=== PATIENT | female | born 1950 | race Caucasian/White ===

== ENCOUNTER 2017-05-30 09:13 | Emergency (ER) | payer MEDICARE, MEDICAID ==
[~2017-05-30] VITALS: Ht 172.7 cm; Wt 88.5 kg
[2017-05-30] MEDS ORDERED: IBUPROFEN 800800 M1 PO (09:34)
[2017-05-30] MEDS ORDERED: ZOLOFT50 MG PO (09:34)
[2017-05-30] MEDS ORDERED: FLEXERIL PO (09:35)
[2017-05-30] MEDS ORDERED: HYDROCHLOROTH12.5 M1 PO (09:35)
[2017-05-30] MEDS ORDERED: PERCOCET 7.5-31 EACH PO (09:35)
[2017-05-30] MEDS ORDERED: HYDROCODON-ACE1 EAC7 PO (12:32)
[2017-05-30] MEDS ORDERED: CYCLOBENZAPRINE5 MG PO (12:32)
[2017-05-30 12:39] VITALS: BP 139/72
== END 2017-05-30 12:40 | disposition home or self-care (01) ==
LOC: M.ERS 09:13
DX: S39.011A Strain of muscle, fascia and tendon of abdomen, initial encounter (principal); M25.551 Pain in right hip; F17.210 Nicotine dependence, cigarettes, uncomplicated; Z88.5 Allergy status to narcotic agent; Z88.0 Allergy status to penicillin; Z88.2 Allergy status to sulfonamides; Z88.8 Allergy status to other drugs, medicaments and biological substances; X58.XXXA Exposure to other specified factors, initial encounter; Y93.89 Activity, other specified; Y92.89 Other specified places as the place of occurrence of the external cause; Y99.8 Other external cause status

== ENCOUNTER → 2017-07-18 | Outpatient (CLI) | payer MEDICARE, MEDICAID ==
[~2017-07-18] MED LIST: CYCLOBENZAPRINE5 MG PO; FLEXERIL PO; HYDROCHLOROTH12.5 M1 PO; HYDROCODON-ACE1 EAC7 PO; IBUPROFEN 800800 M1 PO; OMEPRAZOLE 20 M20 M1 PO; ONDANSETRON HCL4 M2 PO; PERCOCET 7.5-31 EACH PO; ZOLOFT50 MG PO
== END ==
LOC: M.MRI 07-09 16:13 → M.RAD 07:20 → M.MRI 07:30
DX: M47.896 Other spondylosis, lumbar region (principal); M48.061 Spinal stenosis, lumbar region without neurogenic claudication; M25.451 Effusion, right hip

== ENCOUNTER → 2017-08-09 | Outpatient (CLI) | payer MEDICARE, MEDICAID | LOC: M.CT 10:38 | DX: S72.091A Other fracture of head and neck of right femur, initial encounter for closed fracture (principal); X58.XXXA Exposure to other specified factors, initial encounter; Y93.89 Activity, other specified; Y92.89 Other specified places as the place of occurrence of the external cause; Y99.8 Other external cause status ==

== ENCOUNTER 2017-12-11 04:51 | Emergency (ER) | payer MEDICARE, MEDICAID ==
[~2017-12-11] VITALS: Ht 172.7 cm; Wt 89.4 kg
[~2017-12-11 04:51] MED LIST changes: -OMEPRAZOLE 20 M20 M1 PO; -ONDANSETRON HCL4 M2 PO
[2017-12-11 06:50] VITALS: BP 140/65
== END 2017-12-11 06:51 | disposition home or self-care (01) ==
LOC: M.ERS 04:51
DX: M25.551 Pain in right hip (principal); F17.210 Nicotine dependence, cigarettes, uncomplicated; Z88.0 Allergy status to penicillin; Z88.2 Allergy status to sulfonamides; Z88.6 Allergy status to analgesic agent; Z88.5 Allergy status to narcotic agent; Z96.653 Presence of artificial knee joint, bilateral

== ENCOUNTER 2018-03-01 14:17 | Inpatient (IN) | payer MEDICARE, MEDICAID ==
[~2018-03-01] VITALS: Ht 172.7 cm; Wt 87.5 kg
[2018-03-01 14:19] VITALS: BP 154/66
[2018-03-01 14:41] LABS: ABSOLUTE BASOPHILS 0.1 thou/uL (0.0-0.2); ABSOLUTE EOSINOPHILS 0.1 thou/uL (0.0-0.7); ABSOLUTE LYMPHOCYTES 0.8 thou/uL (0.8-5.3); ABSOLUTE MONOCYTES 0.4 thou/uL (0.0-1.2); ABSOLUTE NEUTROPHILS 2.4 thou/uL (1.6-8.1); BASOPHILS 1.4 %; HEMOGLOBIN 14.5 gm/dL (12.0-15.0); LYMPHOCYTES 21.8 %; MCH 29.5 pg (26.0-34.0); MCV 89.4 fL (80.0-100.0); MONOCYTES 9.7 %; MPV 8.2 fl. (7.2-11.1); NUCLEATED RBCS 0 /100WBC; PLATELET COUNT* 246 thou/uL (150-400); POLYS 65.1 %; RBC 4.92 mil/uL (4.20-5.00); RDW-CV 14.2 % (10.5-14.5); WBC 3.7 thou/uL (4.0-11.0)
[2018-03-01 14:52] LABS: ANION GAP 7 mmol/L (7-16); BUN 16 mg/dL (7-18); CALCIUM 9.6 mg/dL (8.5-10.1); CHLORIDE 103 mmol/L (98-107); CO2 29 mmol/L (21-32); CREATININE 0.7 mg/dL (0.6-1.3); GLUCOSE 112 mg/dL (70-99); POTASSIUM 3.9 mmol/L (3.5-5.1); SODIUM 139 mmol/L (136-145)
[2018-03-01 14:59] LABS: ALBUMIN 3.5 g/dL (3.4-5.0); ALKALINE PHOSPHATASE 225 U/L (46-116); LIPASE 139 U/L (73-393); SGOT 863 U/L (15-37); SGPT 447 U/L (30-65); TOTAL BILIRUBIN 1.2 mg/dL (<0.1-1.0); TOTAL PROTEIN 7.4 g/dL (6.4-8.2); TROPONIN-I LEVEL <0.06 ng/mL (<0.06)
[2018-03-01] MEDS ORDERED: OMEPRAZOLE 20 M20 M1 PO (17:50)
[2018-03-01 20:25] VITALS: BP 136/76
[2018-03-01 22:00] VITALS: BP 136/82
[2018-03-02 03:57] LABS: MCH 29.1 pg (26.0-34.0); PLATELET COUNT* 217 thou/uL (150-400)
[2018-03-02 03:59] LABS: ABSOLUTE EOSINOPHILS 0.1 thou/uL (0.0-0.7); ABSOLUTE LYMPHOCYTES 1.2 thou/uL (0.8-5.3); ABSOLUTE MONOCYTES 0.7 thou/uL (0.0-1.2); ABSOLUTE NEUTROPHILS 6.7 thou/uL (1.6-8.1); BASOPHILS 0.3 %; EOSINOPHILS 1.4 %; HEMATOCRIT 41.5 % (37.0-47.0); HEMOGLOBIN 13.7 gm/dL (12.0-15.0); LYMPHOCYTES 13.6 %; MCV 88.4 fL (80.0-100.0); MONOCYTES 7.8 %; MPV 8.4 fl. (7.2-11.1); NUCLEATED RBCS 0 /100WBC; POLYS 76.9 %; RDW-CV 13.9 % (10.5-14.5); WBC 8.7 thou/uL (4.0-11.0)
[2018-03-02 04:25] LABS: INR 1.1; PROTIME 11.1 Seconds (9.20-11.50)
[2018-03-02 04:31] LABS: CALCIUM 9.1 mg/dL (8.5-10.1); CREATININE 0.6 mg/dL (0.6-1.3); POTASSIUM 4.4 mmol/L (3.5-5.1); TOTAL PROTEIN 6.1 g/dL (6.4-8.2)
[2018-03-02 08:00] VITALS: BP 135/76
[2018-03-02 19:55] VITALS: BP 128/80
[2018-03-03 02:06] LABS: HEPATITIS B SURFACE AG Negative (Negative)
[2018-03-03 04:09] LABS: HEMATOCRIT 41.2 % (37.0-47.0); HEMOGLOBIN 13.6 gm/dL (12.0-15.0); MCH 29.2 pg (26.0-34.0); MCV 88.5 fL (80.0-100.0); MPV 8.3 fl. (7.2-11.1); NUCLEATED RBCS 0 /100WBC; PLATELET COUNT* 194 thou/uL (150-400); RBC 4.65 mil/uL (4.20-5.00); WBC 14.1 thou/uL (4.0-11.0)
[2018-03-03 04:33] LABS: CALCIUM 8.9 mg/dL (8.5-10.1); CREATININE 0.7 mg/dL (0.6-1.3); DIRECT BILIRUBIN 6.1 mg/dL (<0.1-0.3); TOTAL BILIRUBIN 7.1 mg/dL (<0.1-1.0); TOTAL PROTEIN 6.1 g/dL (6.4-8.2)
[2018-03-03 04:47] LABS: POTASSIUM 3.2 mmol/L (3.5-5.1)
[2018-03-03 07:50] VITALS: BP 115/64
[2018-03-03 08:50] LABS: ABSOLUTE EOSINOPHILS 0.1 thou/uL (0.0-0.7); ABSOLUTE LYMPHOCYTES 0.8 thou/uL (0.8-5.3); ABSOLUTE MONOCYTES 1.1 thou/uL (0.0-1.2)
[2018-03-03 08:51] LABS: PLATELET ESTIMATE ADEQUATE
--- NOTE | 2018-03-03 10:09 | EKG ---
[place] [address] ELECTROCARDIOGRAM REPORT Name: FIDELCRUZITO Room: [address] ADM IN M.R.#: [id number] Admission: 03/01/18 Attend Phys: Geri España MD Discharge: Date of : 54 Report #: [id number] THIS REPORT FOR: //name// [facility] ED Test Date: 2018-03-01 Test Time: 14:26:02 Pat Name: CRUZITO PARRA Department: Room: [facility] Gender: F Male Model: TLD : 1950 Requested By: Fady Lundberg Order Number: [id number] MD: Les Velasquez Measurements Intervals [place] Rate: 58 P: 39 MA: 133 QRS: -26 QRSD: 113 T: 27 QT: 431 QTc: 424 Interpretive Statements Sinus rhythm Atrial premature complex Incomplete RBBB and LAFB Borderline low voltage, extremity leads Abnormal R-wave progression, late transition No previous ECG available for comparison Electronically Signed On 03-03-2018 10:09:28 STAFF ASSISTANT by Les Velasquez [email or web address] <ELECTRONICALLY SIGNED> By: Les Velasquez MD, [facility] 03/03/18 1009 1426 1426 Les Velasquez MD, [facility] /EPI
[2018-03-03 16:31] VITALS: BP 99/72
[2018-03-03 19:30] VITALS: BP 99/54
[2018-03-04 03:32] LABS: ABSOLUTE EOSINOPHILS 0.5 thou/uL (0.0-0.7); ABSOLUTE LYMPHOCYTES 1.5 thou/uL (0.8-5.3); ABSOLUTE MONOCYTES 0.6 thou/uL (0.0-1.2); ABSOLUTE NEUTROPHILS 4.5 thou/uL (1.6-8.1); BASOPHILS 0.5 %; EOSINOPHILS 6.4 %; HEMATOCRIT 37.9 % (37.0-47.0); HEMOGLOBIN 12.6 gm/dL (12.0-15.0); LYMPHOCYTES 20.9 %; MCH 29.8 pg (26.0-34.0); MCHC 33.3 g/dL (28.0-37.0); MCV 89.4 fL (80.0-100.0); MONOCYTES 8.4 %; MPV 8.5 fl. (7.2-11.1); NUCLEATED RBCS 0 /100WBC; PLATELET COUNT* 191 thou/uL (150-400); POLYS 63.8 %; RBC 4.23 mil/uL (4.20-5.00); WBC 7.1 thou/uL (4.0-11.0)
[2018-03-04 03:57] LABS: ALBUMIN 2.6 g/dL (3.4-5.0); CALCIUM 8.6 mg/dL (8.5-10.1); CREATININE 0.6 mg/dL (0.6-1.3); MAGNESIUM 1.8 mg/dL (1.8-2.4); POTASSIUM 3.4 mmol/L (3.5-5.1); TOTAL BILIRUBIN 2.3 mg/dL (<0.1-1.0); TOTAL PROTEIN 5.5 g/dL (6.4-8.2)
[2018-03-04 04:12] LABS: INR 1.2
[2018-03-04 04:14] VITALS: BP 99/54
[2018-03-04 07:30] VITALS: BP 99/62
[2018-03-04 13:25] LABS: AMP/METHAMP Negative (Negative); BARBITURATES Negative (Negative); BENZODIAZEPINES Negative (Negative); COCAINE Negative (Negative); METHADONE Negative (Negative); OPIATES POSITIVE (Negative); PCP Negative (Negative); THC POSITIVE (Negative)
[2018-03-04 15:46] VITALS: BP 89/59
[2018-03-04 20:00] VITALS: BP 101/49
[2018-03-05 04:48] LABS: HEMATOCRIT 35.1 % (37.0-47.0); HEMOGLOBIN 11.7 gm/dL (12.0-15.0); MCH 29.6 pg (26.0-34.0); MCHC 33.4 g/dL (28.0-37.0); MCV 88.6 fL (80.0-100.0); MPV 8.8 fl. (7.2-11.1); RBC 3.97 mil/uL (4.20-5.00); RDW-CV 14.1 % (10.5-14.5); WBC 5.1 thou/uL (4.0-11.0)
[2018-03-05 05:10] LABS: ALBUMIN 2.3 g/dL (3.4-5.0); CALCIUM 8.2 mg/dL (8.5-10.1); CREATININE 0.6 mg/dL (0.6-1.3); MAGNESIUM 1.8 mg/dL (1.8-2.4); POTASSIUM 3.5 mmol/L (3.5-5.1); TOTAL BILIRUBIN 1.1 mg/dL (<0.1-1.0); TOTAL PROTEIN 5.5 g/dL (6.4-8.2)
[2018-03-05 08:10] VITALS: BP 102/65
[2018-03-05] MEDS ORDERED: PERCOCET 7.5-31 EACH PO (10:32)
[2018-03-05] MEDS ORDERED: ONDANSETRON HCL4 M2 PO (10:32)
[2018-03-05 10:45] VITALS: BP 102/65
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
== END 2018-03-05 15:07 | disposition home or self-care (01) | DRG 444 ==
LOC: M.ERS 14:17 → M.TBA-ER 17:53 → M.ORTHSURG 17:53
PROVIDERS: Emergency Medicine Emergency Medical Services; Internal Medicine; Internal Medicine Gastroenterology; Surgery; ADMIT Family Medicine
PROC: 0DJ08ZZ Inspection of Upper Intestinal Tract, Via Natural or Artificial Opening Endoscopic (ICD-10-PCS; principal; 2018-03-04)
DX: K80.00 Calculus of gallbladder with acute cholecystitis without obstruction (principal); R65.11 Systemic inflammatory response syndrome (SIRS) of non-infectious origin with acute organ dysfunction; E44.1 Mild protein-calorie malnutrition; F17.210 Nicotine dependence, cigarettes, uncomplicated; K57.90 Diverticulosis of intestine, part unspecified, without perforation or abscess without bleeding; Z96.653 Presence of artificial knee joint, bilateral; K76.89 Other specified diseases of liver; E80.6 Other disorders of bilirubin metabolism; K21.9 Gastro-esophageal reflux disease without esophagitis; B19.20 Unspecified viral hepatitis C without hepatic coma; M17.0 Bilateral primary osteoarthritis of knee; Z79.899 Other long term (current) drug therapy; Z88.0 Allergy status to penicillin; Z88.2 Allergy status to sulfonamides; Z88.5 Allergy status to narcotic agent; Z88.8 Allergy status to other drugs, medicaments and biological substances; Z80.9 Family history of malignant neoplasm, unspecified; Z68.29 Body mass index [BMI] 29.0-29.9, adult

== ENCOUNTER 2018-04-01 00:14 | Inpatient (IN) | payer MEDICARE, MEDICAID ==
[~2018-04-01] VITALS: Ht 172.7 cm; Wt 90.7 kg
--- NOTE | ~2018-04-01 | CON ---
[address] [address] CONSULTATION Name: CRUZITO PARRA Room: [address] IN M.R.#: [id number] Admission: 04/01/18 Attend Phys: Catie Hubbard MD Discharge: Date of : 54 Report #: [id number] THIS REPORT FOR: //name// CC: Catie Onofre DATE OF SERVICE: 04/01/2018 HISTORY OF PRESENT ILLNESS: This is a 68-year-old female who was last hospitalized back on 03/02 with cholecystitis. At that time, the patient was recommended to see Dr. Mata in regards to her underlying liver disease and possibly get her gallbladder out at [facility]. The patient reports that since her discharge, she was doing well and she has been watching her diet. She reports that the night before admission, she woke up in the middle of the night with severe band-like pain in her epigastric region. The pain was excruciating, therefore this prompted her to come to the ER. During her ER visit, she was found to have elevated liver enzymes including bilirubin of 2.9. She also had evidence of acute cholecystitis with pericholecystic fluid and gallbladder full of stones. She currently feels a bit better that she has been receiving IV fluids. The patient reports that the night before admission, she took milk of magnesia and had a large bowel movement. Since then, she has not had any BMs. The patient currently on n.p.o. status. PAST MEDICAL HISTORY: Significant for history of cholecystitis, morbid obesity, gastric sleeve due to the same, history of cirrhosis, bilateral knee pain, gastroesophageal reflux disease, bilateral knee and right hip replacement. ALLERGIES: SIGNIFICANT TO PENICILLIN, SULFA AND MORPHINE. MEDICATIONS: Please refer to hospital MAR. SOCIAL HISTORY: The patient lives at home. Denies tobacco or alcohol use. FAMILY HISTORY: Negative for GI malignancies. PHYSICAL EXAMINATION: VITAL SIGNS: Reveals blood pressure of 119/96, respirations 18, pulse 75, and temperature 98.1. LUNGS: Clear. CARDIOVASCULAR: Regular. ABDOMEN: Soft, tender to palpation in the epigastric region. Bowel sounds are positive. NEUROLOGIC: The patient is alert, oriented x 3. LABORATORY DATA: Revealed sodium of 133, potassium 3.1, BUN is 11, creatinine 0.8, glucose 145. AST is 26, ALT 23, alkaline phosphatase 322. WBC is 17.9 [place] [address] CONSULTATION Name: CRUZITO PARRA Room: [address]#: [id number] Admission: 04/01/18 Attend Phys: Catie Hubbard MD Discharge: Date of : 54 Report #: [id number] with hemoglobin of 12.5 and platelets of 301. IMAGING: CT of abdomen and pelvis was obtained on admission. This was significant for acute cholecystitis without evidence of gallbladder rupture or perforation. There is no evidence of intra or extrahepatic ductal dilatation to suggest biliary obstruction. ASSESSMENT AND PLAN: The patient with acute cholecystitis and leukocytosis. We will place the patient on antibiotics, allow her to eat a low fat diet and talked to her in regards to her previous recommendation, which was for her to be seen by Dr. Mata at and hopefully have her gallbladder removed at as well. We will await the surgical input as they have evaluated her today. By: 1302 1931Mayda Dsouza MD /nt
[~2018-04-01 00:14] MED LIST changes: +OMEPRAZOLE 20 M20 M1 PO; +ONDANSETRON HCL4 M2 PO
[2018-04-01 00:21] VITALS: BP 109/62
[2018-04-01 01:09] LABS: ABSOLUTE BASOPHILS 0.2 thou/uL (0.0-0.2); ABSOLUTE EOSINOPHILS 0.1 thou/uL (0.0-0.7); ABSOLUTE LYMPHOCYTES 2.1 thou/uL (0.8-5.3); ABSOLUTE MONOCYTES 1.7 thou/uL (0.0-1.2); ABSOLUTE NEUTROPHILS 13.8 thou/uL (1.6-8.1); BASOPHILS 1.2 %; EOSINOPHILS 0.7 %; HEMATOCRIT 37.5 % (37.0-47.0); HEMOGLOBIN 12.5 gm/dL (12.0-15.0); LYMPHOCYTES 11.8 %; MCH 29.6 pg (26.0-34.0); MCHC 33.3 g/dL (28.0-37.0); MCV 89.1 fL (80.0-100.0); MONOCYTES 9.4 %; MPV 9.3 fl. (7.2-11.1); NUCLEATED RBCS 0 /100WBC; PLATELET COUNT* 301 thou/uL (150-400); POLYS 76.9 %; RBC 4.21 mil/uL (4.20-5.00); RDW-CV 14.2 % (10.5-14.5); WBC 17.9 thou/uL (4.0-11.0)
[2018-04-01 01:15] LABS: CREATININE 0.8 mg/dL (0.6-1.3); POTASSIUM 3.1 mmol/L (3.5-5.1)
[2018-04-01 01:19] LABS: ALBUMIN 2.6 g/dL (3.4-5.0); TOTAL BILIRUBIN 2.9 mg/dL (<0.1-1.0); TOTAL PROTEIN 7.3 g/dL (6.4-8.2)
[2018-04-01 03:45] VITALS: BP 118/71
[2018-04-01 04:20] VITALS: BP 101/59
--- NOTE | 2018-04-01 04:25 | NUR ---
PT ADMITTED TO FLOOR PER CART ACCOMPANIED BY ER STAFF WITH BELONGINGS. ORIENTED TO ROOM AND CALL LITE. HISTORY OBTAINED AND ASSESSMENT PERFORMED, SEE ADMIT NOTES. PT STATES PAIN IS TOLERABLE TO LEFT ABDOMEN AT THIS TIME AFTER RECEIVING PAIN MED IN ER. DENIES NAUSEA. ABD OBESE, SOFT, ROUND. IVF PLACED ON PUMP FOR INFUSIONG, ABX GIVEN ORDERED. NPO, SWABS GIVEN FOR COMFORT. WILL CONTINUE TO MONITOR AND PROVIDE CARES NEEDED.
[2018-04-01 06:04] LABS: URINE BLOOD TRACE (Negative); URINE CLARITY CLEAR; URINE COLOR DARK YELLOW; URINE GLUCOSE-RANDOM TRACE (Negative); URINE KETONES NEGATIVE (Negative); URINE LEUKOCYTES-REFLEX NEGATIVE (Negative); URINE NITRITE-REFLEX NEGATIVE (Negative); URINE PROTEIN TRACE (Negative); URINE SPECIFIC GRAVITY <= 1.005 (1.005-1.030)
[2018-04-01 06:07] LABS: ICTOTEST (BILI CONFIRMATORY) Positive (Negative); URINE BILIRUBIN 2+ (Negative)
--- NOTE | 2018-04-01 07:26 | NUR ---
NEW ADMIT THIS MORNING. PT UP AD LUCHO IN ROOM. IVF INFUSING PER PUMP, ABX GIVEN ORDERED. IV K STARTED THIS MORNING FOR K LAB 3.1. PT CO ITCHING, NOTIFIED AND IV BENADRYL GIVEN THIS MORNING. UA SENT TO LAB. HAS BEEN NPO, ORAL SWAB AND MOUTH MOISTURIZER GIVEN FOR COMFORT. FENTANYL IV GIVEN PRN FOR PAIN WITH FAIR RELIEF. ABLE TO USE CALL LITE AND MAKE NEEDS KNOWN. GI AND SURGERY TO CONSULT.
[2018-04-01 07:50] VITALS: BP 119/96
--- NOTE | 2018-04-01 14:00 | NUR ---
CALLED TRANSFER TEAM PER ORDER TO TRANSFER PT.FOR FILM LIBRARY CLERK EVLEAH FOR HEPATOBILIARY SURGERY. SPOKE WITH LAYNE. GAVE INFORMATION. FAXED FACE SHEET,H&P,SURGERY CONSULT,LABS,VS,CT SCAN OF ABD.RESULTS TO [id number]. CM CALLED RADIOLOGY TO LOAD CT TO CLOUD AT . INFORMED THAT MAY BE CALLING HIM REGARDING TRANSFER. ATTEMPTED TO DISCUSS WITH PT.BUT SHE WAS SLEEPING. DID NOT AWAKEN.
[2018-04-01 16:00] VITALS: BP 114/79
--- NOTE | 2018-04-01 16:48 | NUR ---
PATIENT GIVEN PRN FENTANYL FOR ABD PAIN. SPOKE WITH DR. HERNANDEZ AND SAHARA FOR PATIENT TO TRANSFER TO IF ACCEPTING, UNTIL THEN PATIENT TO RECEIVE IV LEVAQUIN DAILY. SPOKE WITH DR. BECKHAM AND SAHARA TO TRANSFER. POTASSIUM BEING REPLACED IV. IV TO RIGHT FA INFILTRATED, IV RESTARTED BY INFUSION TO LEFT FA. SPOKE WITH FREDDIE FROM AND PER WILL NOT ACCEPT TRANSFER IT IS NOT EMERGENT. DR. BECKHAM MADE AWARE, NO NEW ORDERS RECEIVED.
[2018-04-02 00:05] VITALS: BP 120/68
[2018-04-02 04:31] LABS: HEMATOCRIT 30.7 % (37.0-47.0); MCH 30.6 pg (26.0-34.0); MCV 89.8 fL (80.0-100.0); RBC 3.42 mil/uL (4.20-5.00); RDW-CV 14.8 % (10.5-14.5); WBC 6.9 thou/uL (4.0-11.0)
[2018-04-02 04:38] LABS: HEMOGLOBIN 10.5 gm/dL (12.0-15.0)
[2018-04-02 04:52] LABS: ALBUMIN 1.7 g/dL (3.4-5.0); CREATININE 0.6 mg/dL (0.6-1.3); DIRECT BILIRUBIN 2.6 mg/dL (<0.1-0.3); PHOSPHORUS* 3.2 mg/dL (2.5-4.9); POTASSIUM 3.7 mmol/L (3.5-5.1); TOTAL PROTEIN 5.8 g/dL (6.4-8.2)
--- NOTE | 2018-04-02 05:52 | NUR ---
PT SLEPT WELL AFTER RECEIVING IV PAIN MED AND BENADRYL AT HS. UP AD LUCHO IN ROOM. IVF INFUSING PER PUMP. ABLE TO USE CALL LITE AND MAKE NEEDS KNOWN. NO N/V. AM LABS DRAWN.
[2018-04-02 08:00] VITALS: BP 112/68
[2018-04-02 17:15] VITALS: BP 121/62
--- NOTE | 2018-04-02 17:38 | NUR ---
PATIENT HAS BEEN ALERT AND ORIENTED TODAY. HAS COMPLAINTS OF PAIN AT ALL TIMES AND DOES NOT LIKE THE FOOD HERE. MENU TOOK TO PATIENT SO DIFFERENT FOOD COULD BE ORDERED. VITAL SIGNS STABLE ON ROOM AIR. UP AD LUCHO IN ROOM. CALL LIGHT IS IN REACH WILL CONTINUE TO MONITOR.
[2018-04-02 20:01] VITALS: BP 101/47
[2018-04-03 04:48] LABS: HEMATOCRIT 33.9 % (37.0-47.0); HEMOGLOBIN 11.4 gm/dL (12.0-15.0); MCH 30.1 pg (26.0-34.0); MCHC 33.6 g/dL (28.0-37.0); MCV 89.7 fL (80.0-100.0); MPV 8.8 fl. (7.2-11.1); RBC 3.78 mil/uL (4.20-5.00); RDW-CV 14.6 % (10.5-14.5); WBC 8.8 thou/uL (4.0-11.0)
--- NOTE | 2018-04-03 05:22 | NUR ---
PT SLEPT WELL AFTER RECEIVING IV PAIN MED AND BENADRYL AT HS. HAS DENIED N/V. UP AD LUCHO IN ROOM, TO BR TO VOID. LFA IVF INFUSING PER PUMP. AM LABS DRAWN. ABLE TO USE CALL LITE AND MAKE NEEDS KNOWN. POSSIBLE DISCHARGE WITH FOLLOW UP AT SPECIALIST OFFICE.
[2018-04-03 05:28] LABS: ALBUMIN 1.9 g/dL (3.4-5.0); CALCIUM 8.3 mg/dL (8.5-10.1); CREATININE 0.6 mg/dL (0.6-1.3); POTASSIUM 3.5 mmol/L (3.5-5.1); TOTAL BILIRUBIN 1.2 mg/dL (<0.1-1.0); TOTAL PROTEIN 6.3 g/dL (6.4-8.2)
[2018-04-03 07:20] VITALS: BP 118/73
[2018-04-03 16:00] VITALS: BP 158/83
--- NOTE | 2018-04-03 17:09 | NUR ---
ASSESSMENT COMPLETE. PT ALERT AND ORIENTED X4. PT GIVEN PRN FENTANYL MULTIPLE TIMES THROUGHOUT THE DAY. PHENERGAN GIVEN FOR NAUSEA. PT IS ON ROOM AIR, VITALS STABLE. IV FLUIDS INFUSING. PT IS UP AD LUCHO WITH STEADY GAIT. SEE ASSESSMENT AND VITALS FOR OTHER DETAILS. CALL LIGHT WITHIN REACH, WILL CONTINUE PLAN OF CARE
[2018-04-03 20:00] VITALS: BP 118/69
[2018-04-04 04:15] LABS: HEMATOCRIT 32.6 % (37.0-47.0); HEMOGLOBIN 10.9 gm/dL (12.0-15.0); MCH 29.7 pg (26.0-34.0); MCHC 33.3 g/dL (28.0-37.0); MCV 89.2 fL (80.0-100.0); MPV 8.5 fl. (7.2-11.1); RBC 3.65 mil/uL (4.20-5.00); RDW-CV 14.6 % (10.5-14.5); WBC 6.4 thou/uL (4.0-11.0)
[2018-04-04 04:56] VITALS: BP 147/78
[2018-04-04 05:15] LABS: ALBUMIN 1.8 g/dL (3.4-5.0); CALCIUM 7.9 mg/dL (8.5-10.1); CREATININE 0.5 mg/dL (0.6-1.3); MAGNESIUM 1.9 mg/dL (1.8-2.4); POTASSIUM 3.8 mmol/L (3.5-5.1); TOTAL PROTEIN 5.4 g/dL (6.4-8.2)
--- NOTE | 2018-04-04 05:19 | NUR ---
ASSUMED CARE OF PT AT 1900 PT ALERT AND ORIENTED X4 VS AND ASSESSMENT AT PTS BASELINE. PT HAD PAIN MEDS X2 OVERNIGHT THEN SLEPT IN BETWEEN. WILL CONTINUE PLAN OF CARE.
[2018-04-04 08:00] VITALS: BP 132/71
[2018-04-04 15:41] VITALS: BP 110/69
--- NOTE | 2018-04-04 17:31 | NUR ---
SHIFT NOTE - FAMILY PRESENT AT BEDSIDE THIS SHIFT. IV SITE CHANGED TO RIGHT WRIST. PREVIOUS IV LEAKING. PT UP TO COMMODE WITH MINIMAL ASSIST. WILL CONTINUE TO MONITOR.
[2018-04-04 20:00] VITALS: BP 120/72
[2018-04-05 04:23] LABS: HEMATOCRIT 30.4 % (37.0-47.0); HEMOGLOBIN 10.2 gm/dL (12.0-15.0); MCH 30.1 pg (26.0-34.0); MCHC 33.7 g/dL (28.0-37.0); MCV 89.3 fL (80.0-100.0); MPV 8.4 fl. (7.2-11.1); RBC 3.4 mil/uL (4.20-5.00); RDW-CV 14.4 % (10.5-14.5); WBC 6.3 thou/uL (4.0-11.0)
[2018-04-05 04:44] LABS: ALBUMIN 1.8 g/dL (3.4-5.0); CALCIUM 8.1 mg/dL (8.5-10.1); CREATININE 0.6 mg/dL (0.6-1.3); MAGNESIUM 1.8 mg/dL (1.8-2.4); POTASSIUM 3.3 mmol/L (3.5-5.1); TOTAL BILIRUBIN 0.7 mg/dL (<0.1-1.0); TOTAL PROTEIN 5.8 g/dL (6.4-8.2)
--- NOTE | 2018-04-05 05:00 | NUR ---
ASSUMED CARE OF PT AFTER REPORT AT 1930. PT A&OX4. VSS. PHYSICAL ASSESSMENT COMPLETED AND CHARTED. PT ON RA WITH 99% O2 SAT. PT UP ADLIB. PT C/O OF ABDOMINAL PAIN WITH PAIN SCALE OF 7/10-PAIN MEDS GIVEN PER JUN. PT ALSO C/O OF ONE EPISODE OF NAUSEA- ZOFRAN GIVEN. INSERTED IV ON LEFT HAND. PT POTASSIUM 3.3- WILL INITIATE ELECTROLYTE PROTOCOL. CALL LIGHT WITHIIN REACH.
[2018-04-05 07:35] VITALS: BP 130/80
--- NOTE | 2018-04-05 11:30 | NUR ---
PT.STILL REQUIRING IV PAIN MEDS PLUS ORAL PAIN MEDS. DISCUSSED WITH , SURGERY SIGNED OFF. HE SAID IF PT.STILL HAVING SIGNIFICANT PAIN MAY NEED TO BE TRANSFERRED TO AFTER ALL, WE CAN NOT PROVIDE THE SERVICE (SURGERY) PT.NEEDS.
--- NOTE | 2018-04-05 18:35 | NUR ---
VSS-AFEBRILE. REQUIRING FREQUENT PO AND IV PAIN MEDICATION THROUGHOUT SHIFT. COMPLAINS OF GENERALIZED ABDOMINAL PAIN THAT IS ONLY PARTIALLY RELIEVED WITH MEDICATION. ADVISED DR BECKHAM OF UNCONTROLLED PAIN, NO NEW ORDERS. K+ REPLACED PER ELECTROLYTE PROTOCOL. FAIR APPETITE. NO DIFFICULTY VOIDING.
[2018-04-06] VITALS: BP 133/72
--- NOTE | 2018-04-06 04:15 | NUR ---
PATIENT SLEPT WELL DURING THIS SHIFT. PT REQUESTED PAIN MEDICATION X2 AND WAS ABLE TO RETURN TO SLEEP AFTERWARDS. PT UP AD LUCHO IN ROOM. PT WITH FLUIDS INFUSING PER DR ORDER. PT WITH DIMINISHED, CLEAR LUNG SOUNDS. PT IS ON ROOM AIR. PT DENIES NEEDS AT THIS TIME. FREQUENTLY USED ITEMS AND CALL LIGHT WITHIN REACH. SIDERAILS UPX2. WILL CONTINUE TO MONITOR.
[2018-04-06 11:00] VITALS: BP 139/79
[2018-04-06] MEDS ORDERED: CIPRO500 MG PO (11:31)
[2018-04-06] MEDS ORDERED: PROTONIX40 M1 PO (11:32)
[2018-04-06] MEDS ORDERED: PERCOCET 10-321 EACH PO (11:33)
[2018-04-06] MEDS ORDERED: FLAGYL500 M1 PO (11:34)
[2018-04-06 11:43] VITALS: BP 133/72
[2018-04-06 11:52] VITALS: BP 133/72
[2018-04-06 12:05] VITALS: BP 133/72
--- NOTE | 2018-04-06 12:06 | NUR ---
PATIENT HAS BEEN ALERT AND ORIENTED TODAY VERY PLEASANT. UP AD LUCHO IN ROOM VITAL SIGNS STABLE ON ROOM AIR. PAIN THAT IS SOMEWHAT CONTROLLED WITH ORAL PAIN MEDICATIONS. PATIENT IS BEING DISCHARGED TO HOME. DISCHARGE INSTRCUTIONS AND PRESCRIPTIONS GIVEN TO PATIENT. QUESTIONS ANSWERED FOR PATIENT AND SPOUSE. LEFT VIA WHEELCHAIR WITH NURSING TO STAFF HOME WITH .
== END 2018-04-06 12:08 | disposition home or self-care (01) | DRG 871 ==
LOC: M.ERS 00:14 → M.TBA-ER 02:53 → M.3W 02:53
PROVIDERS: Emergency Medicine; Family Medicine; Surgery; ADMIT Internal Medicine
DX: A41.9 Sepsis, unspecified organism (principal); E43 Unspecified severe protein-calorie malnutrition; K81.0 Acute cholecystitis; E87.1 Hypo-osmolality and hyponatremia; F32.9 Major depressive disorder, single episode, unspecified; I10 Essential (primary) hypertension; K21.9 Gastro-esophageal reflux disease without esophagitis; E87.6 Hypokalemia; E80.6 Other disorders of bilirubin metabolism; F12.10 Cannabis abuse, uncomplicated; D64.9 Anemia, unspecified; B19.20 Unspecified viral hepatitis C without hepatic coma; K81.1 Chronic cholecystitis; F17.210 Nicotine dependence, cigarettes, uncomplicated; E66.01 Morbid (severe) obesity due to excess calories; K74.60 Unspecified cirrhosis of liver; Z96.641 Presence of right artificial hip joint; Z96.653 Presence of artificial knee joint, bilateral; Z68.30 Body mass index [BMI] 30.0-30.9, adult; Z98.84 Bariatric surgery status; Z79.899 Other long term (current) drug therapy; Z91.14 Patient's other noncompliance with medication regimen; Z88.0 Allergy status to penicillin; Z88.2 Allergy status to sulfonamides; Z88.5 Allergy status to narcotic agent; Z88.8 Allergy status to other drugs, medicaments and biological substances; Z80.8 Family history of malignant neoplasm of other organs or systems

== ENCOUNTER 2018-11-21 14:28 | Emergency (ER) | payer MEDICARE, MEDICAID ==
[~2018-11-21] VITALS: Ht 172.7 cm; Wt 98.2 kg
[~2018-11-21 14:28] MED LIST changes: +CIPRO500 MG PO; +FLAGYL500 M1 PO; +PERCOCET 10-321 EACH PO; +PROTONIX40 M1 PO
[2018-11-21] MEDS ORDERED: OMEPRAZOLE10 MG PO (14:37)
[2018-11-21] MEDS ORDERED: ZOLOFT50 MG PO (14:37)
[2018-11-21 15:05] VITALS: BP 129/66
--- NOTE | 2018-11-22 11:08 | EKG ---
[place] [address] ELECTROCARDIOGRAM REPORT Name: CRUZITO PARRA Room: [facility]#: [id number] Admission: 11/21/18 Attend Phys: Discharge: 11/21/18 Date of : 54 Report #: [id number] THIS REPORT FOR: //name// [facility] ED Test Date: 2018-11-21 Test Time: 14:34:20 Pat Name: CRUZITO PARRA Department: Room: Gender: F Leather Worker: : 1950 Requested By: Anushka Shafer Order Number: [id number] Reading MD: Darrel Morales Measurements Intervals [place] Rate: 62 P: 35 IA: 134 QRS: -19 QRSD: 112 T: 39 QT: 426 QTc: 433 Interpretive Statements Sinus rhythm Atrial premature complex Incomplete RBBB and LAFB Borderline low voltage, extremity leads Abnormal R-wave progression, late transition Compared to ECG 03/01/2018 14:26:02 No significant changes Electronically Signed On 11-22-2018 11:08:26 CDT by Darrel Morales [email or web address] <ELECTRONICALLY SIGNED> By: Darrel Morales MD, [facility] 11/22/18 1108 1434 1434 Darrel Morales MD, [facility] /EPI
== END 2018-11-21 15:06 | disposition left against medical advice (07) ==
LOC: M.ERS 14:28
DX: R07.89 Other chest pain (principal); K21.9 Gastro-esophageal reflux disease without esophagitis; F17.210 Nicotine dependence, cigarettes, uncomplicated; Z88.0 Allergy status to penicillin; Z88.2 Allergy status to sulfonamides; Z88.5 Allergy status to narcotic agent; Z88.6 Allergy status to analgesic agent; Z96.653 Presence of artificial knee joint, bilateral; Z96.641 Presence of right artificial hip joint; Z86.19 Personal history of other infectious and parasitic diseases